=== PATIENT | male | born 1970 | race Caucasian/White ===

== ENCOUNTER 2019-06-01 13:17 | Emergency (ER) | payer SELFPAY ==
[2019-06-01] MEDS ORDERED: ASPIRIN 81 MG TABLET, CHEWABLE PO ONE (14:25)
--- NOTE | 2019-06-01 14:27 | ER Document Report ---
ED Medical Screen (RME) - General Chief Complaint: Chest Pain Stated Complaint: CHEST PAIN Time Seen by Provider: 06/01/19 14:22 Notes: Patient is a 48-year-old male initially found sleeping in a wheelchair. Is arousable with very loud verbal stimuli. When you do not speak to patient he falls asleep sitting in wheelchair in triage room as staff is attempting to obtain in HPI. Patient voices "I am just really tired." Patient states he has had intermittent chest pain for the last couple of months. States last night it awoke him from sleep. Patient's denying any shortness of breath, any medical problems or daily medications. Patient states "I never go to the doctor." LUNGS: Clear to auscultation bilaterally, no wheezes, rales, or rhonchi. No respiratory distress. HEART: Regular rate and rhythm. No murmur I have greeted and performed a rapid initial assessment of this patient. A comprehensive ED assessment and evaluation of the patient, analysis of test results and completion of the medical decision making process will be conducted by additional ED providers. I have specifically instructed the patient or family members with the patient to immediately return to any nursing staff should anything change in the patient's condition or with their chief complaint. This medical record was dictated with voice recognizing software. There may be grammatical, syntax errors that are unintended. TRAVEL OUTSIDE OF THE [place] IN LAST 30 DAYS: No - Related Data Allergies/Adverse Reactions: No Known Allergies Allergy (Verified 06/01/19 13:19) Physical Exam - Vital signs Vitals: Temp Pulse Resp BP Pulse Ox 98.2 F 71 20 99/58 L 94 06/01/19 13:34 06/01/19 13:34 06/01/19 13:34 06/01/19 13:34 06/01/19 13:34 Course - Vital Signs Vital signs: Temp Pulse Resp BP Pulse Ox 98.2 F 71 20 99/58 L 94 06/01/19 13:34 06/01/19 13:34 06/01/19 13:34 06/01/19 13:34 06/01/19 13:34
--- NOTE | 2019-06-01 14:52 | RADIOLOGY REPORT (SQ) ---
EXAM DESCRIPTION: CHEST SINGLE VIEW COMPLETED DATE/TIME: 06/01/2019 2:44 pm REASON FOR STUDY: CP COMPARISON: None. NUMBER OF VIEWS: One view. TECHNIQUE: Single frontal radiographic image of the chest acquired. LIMITATIONS: None. FINDINGS: LUNGS AND PLEURA: Stable appearance. MEDIASTINUM AND HILAR STRUCTURES: Stable heart size and mediastinal structures. HEART AND VASCULAR STRUCTURES: Stable appearance. SUPPORT DEVICES: Appropriate location without change. BONES: No acute findings. OTHER: No other significant finding. IMPRESSION: STABLE APPEARANCE OF THE CHEST. SUPPORT DEVICES UNCHANGED. TECHNICAL DOCUMENTATION: JOB ID: [id number] [employer]- All Rights Reserved Reading location - IP/workstation name: [email or web address]
[2019-06-01 15:57] LABS: ABSOLUTE BASOPHILS # (AUTO) 0.1 10^3/uL (0.0-0.2); ABSOLUTE EOSINOPHILS # (AUTO) 0.5 10^3/uL (0.0-0.6); ABSOLUTE LYMPHOCYTES (AUTO) 3.1 10^3/uL (0.5-4.7); BASOPHILS % (AUTO) 0.8 % (0-2); HEMOGLOBIN 17.3 g/dL (13.5-17.0); TOTAL CELLS COUNTED % (AUTO) 100 %
[2019-06-01 16:03] LABS: ABSOLUTE MONOCYTES (AUTO) 0.9 10^3/uL (0.1-1.4); ABSOLUTE NEUT (AUTO) 3.8 10^3/uL (1.7-8.2); EOSINOPHILS % (AUTO) 5.7 % (0-6); HEMATOCRIT 49.2 % (37.9-51.0); LYMPHOCYTES % (AUTO) 37.6 % (13-45); MEAN CORPUSCULAR HEMOGLOBIN 33.7 pg (27.0-33.4); MEAN CORPUSCULAR HGB CONC 35.3 g/dL (32.0-36.0); MEAN CORPUSCULAR VOLUME 96 fl (80-97); MONOCYTES % (AUTO) 10.3 % (3-13); PLATELET COUNT 245 10^3/uL (150-450); RED BLOOD COUNT 5.15 10^6/uL (4.35-5.55); SEGMENTED NEUTROPHILS % (AUTO) 45.6 % (42-78); WHITE BLOOD COUNT 8.3 10^3/uL (4.0-10.5)
[2019-06-01 16:07] LABS: INTERNATIONAL RATION (INR) 1.05; PROTHROMBIN TIME 13.7 SEC (11.4-15.4)
[2019-06-01 16:14] LABS: ALANINE AMINOTRANSFERASE 93 U/L (21-72); ALBUMIN 4.6 g/dL (3.5-5.0); ALCOHOL 207 mg/dL (NONE DETECTED); ALKALINE PHOSPHATASE 126 U/L (38-126); ANION GAP 15 (5-19); ASPARTATE AMINO TRANSFERASE 139 U/L (17-59); BILIRUBIN,DIRECT 0.7 mg/dL (0.0-0.4); BILIRUBIN,TOTAL 0.9 mg/dL (0.2-1.3); BLOOD UREA NITROGEN 4 mg/dL (7-20); CALCIUM 9.1 mg/dL (8.4-10.2); CARBON DIOXIDE 23 mmol/L (22-30); CHLORIDE 102 mmol/L (98-107); CREATINE KINASE 204 U/L (55-170); GLUCOSE 99 mg/dL (75-110); POTASSIUM 3.5 mmol/L (3.6-5.0)
[2019-06-01 16:25] LABS: CREATINE KINASE MB 0.54 ng/mL (<4.55)
[2019-06-01 16:26] LABS: TROPONIN I < 0.012 ng/mL
--- NOTE | 2019-06-01 16:28 | ER Document Report ---
ED General - General Chief Complaint: Chest Pain Stated Complaint: CHEST PAIN Time Seen by Provider: 06/01/19 14:22 TRAVEL OUTSIDE OF THE [place] IN LAST 30 DAYS: No - HPI Notes: Patient is a 48-year-old alcoholic male who presents to the emergency department complaining of left-sided sternal chest pain that has been present/intermittent for the past 2 months. Patient states the pain is worse when he moves his arm pushes in the area. Patient states that the pain is sharp and has been present since yesterday. Patient states that he does have some upper abdominal pain that does not radiate. Patient states that he has had a decreased p.o. intake. He is urinating normally. Patient states that he has had some diarrhea recently which is not uncommon for him. Patient does report nausea and vomiting, but states that he has this all the time. Denies drug allergies. Pt has had a hernia repair surgery. He does not take any medicines daily. Denies IV drug abuse. Denies any headache, fever, head injury, neck pain, changes in vision/speech/mentation/hearing, URI, sore throat, palpitations, syncope, cough, shortness of breath, wheeze, dyspnea, urinary retention, dysuria, hematuria, loss of control of bowel or bladder, numbness/tingling, saddle anesthesia, muscle paralysis/weakness, or rash. - Related Data Allergies/Adverse Reactions: No Known Allergies Allergy (Verified 06/01/19 13:19) Past Medical History - Social History Smoking Status: Current Every Day Smoker Chew tobacco use (# tins/day): No Frequency of alcohol use: Heavy Drug Abuse: None Family History: Reviewed & Not Pertinent Patient has suicidal ideation: No Patient has homicidal ideation: No Renal/ Medical History: Denies: Hx Peritoneal Dialysis Review of Systems - Review of Systems -: Yes All other systems reviewed and negative Physical Exam - Vital signs Vitals: Temp Pulse Resp BP Pulse Ox 98.2 F 71 20 99/58 L 94 06/01/19 13:34 06/01/19 13:34 06/01/19 13:34 06/01/19 13:34 06/01/19 13:34 - Notes Notes: PHYSICAL EXAMINATION: GENERAL: Well-appearing, well-nourished and in no acute distress. + smell of etoh. A&Ox4. Answers questions appropriately. HEAD: Atraumatic, normocephalic. EYES: Pupils equal round and reactive to light, extraocular movements intact, sclera anicteric, conjunctiva are normal. ENT: Nares patent and without discharge. oropharynx clear without exudates. No tonsilar hypertrophy or erythema. Moist mucous membranes. NECK: Normal range of motion, supple without lymphadenopathy Chest: + reproducible tenderness to palp of the left chest wall and with ROM of the LUE. LUNGS: Breath sounds clear to auscultation bilaterally and equal. No wheezes rales or rhonchi. HEART: Regular rate and rhythm without murmurs, rubs, gallops. ABDOMEN: Soft, nondistended abdomen. No guarding, no rebound. Normal bowel sounds present. No CVA tenderness bilaterally. + tenderness to epigastrum. No lower abd tenderness. Musculoskeletal: FROM to passive/active. Strength 5+/5. Extremities: No cyanosis, clubbing, or edema b/l. Peripheral pulses 2+. Capillary refill less than 3 seconds. Caleb neg b/l. no LE asymmetry. NEUROLOGICAL: Cranial nerves grossly intact. Normal speech (no slurring currently), normal gait. Normal sensory, motor exams PSYCH: Normal mood, normal affect. SKIN: Warm, Dry, normal turgor, no rashes or lesions noted. Course - Re-evaluation Re-evalutation: 06/01/19 19:10 Patient is an afebrile, well-hydrated 48-year-old male who presents to the ED with chest wall pain and epigastric abdominal pain, suspect gastritis. Vitals are acceptable without any significant tachycardia, tachypnea, or hypoxia. PE is otherwise unremarkable aside from the reproducible chest wall tenderness and epigastric tenderness. GI cocktail improved epigastric pain. Patient is nontoxic-appearing and is tolerating p.o. without any difficulties. CBC, CMP, EKG/cardiac enzymes 2, chest x-ray are all unremarkable for any acute pathology. RUQ US unremarkable. Patient has a heart score of <=3, Wells score of 0, and is PERC negative. Patient does not have any dyspnea or shortness of breath. Patient's presentation and symptomatology creates low suspicion for ACS, PE, pneumothorax, pericarditis, dissection, respiratory compromise, severe dehydration, sepsis, meningitis, or other systemic emergent condition at this time. Patient is aware that his condition can change from initial presentation and he needs to monitor symptoms closely and seek medical attention for any acute changes. Pt is feeling better and would like to go home. He is currently of sound mind and is A&Ox4. He is not slurring his speech and is able to ambulate w/o any instability. Counseled on etoh. Recommend conservative measures for symptoms. Recheck with your PCM in 2-3 days. Consider consult with GI. Return to the ED with any worsening/concerning symptoms otherwise as reviewed in discharge. Patient is in agreement. - Vital Signs Vital signs: Temp Pulse Resp BP Pulse Ox 98.5 F 71 12 114/85 94 06/01/19 19:08 06/01/19 13:34 06/01/19 16:02 06/01/19 16:02 06/01/19 13:34 - Laboratory Result Diagrams: 06/01/19 15:44 06/01/19 15:44 Laboratory results interpreted by me: 06/01/19 06/01/19 15:44 15:44 Hgb 17.3 H MCH 33.7 H Potassium 3.5 L BUN 4 L Direct Bilirubin 0.7 H AST 139 H ALT 93 H Creatine Kinase 204 H Discharge - Discharge Clinical Impression: Epigastric abdominal pain, Chest wall pain Condition: Stable Disposition: HOME, SELF-CARE Instructions: Abdominal Pain ([facility]), Chest Wall Pain ([facility]) Additional Instructions: Maintain adequate fluid and food intake Harmon diet (B.R.A.T.) Bananas, rice, apples, toast, etc Monitor for any worsening symptoms Monitor blood pressure and keep log Consider alcohol detox Make sure you are staying hydrated enough to urinate and have normal BM's Recheck with your PCM in 2-3 days Consider consult with Gastroenterology for ongoing/worsening symptoms Return to the ED with any worsening symptoms and/or development of fever, he adache, chest pain, palpitations, syncope, shortness of breath, trouble breathing, abdominal pain, n/v/d, blood in stool/urine, weakness, or other worsening symptoms that are concerning to you. Prescriptions: Omeprazole 20 mg PO DAILY #30 tablet. Sucralfate [Carafate] 1 gm PO BID #100 ml Forms: Elevated Blood Pressure, Smoking Cessation Education Referrals: MARY GONZALEZ MD [ACTIVE STAFF] - Follow up as needed [facility] [Provider Group] - Follow up as needed
[2019-06-01] MEDS: NORMAL SALINE 1000 ML 1,000 ML IV PRN ×2 (17:15→18:14)
--- NOTE | 2019-06-01 17:22 | RADIOLOGY REPORT (SQ) ---
EXAM DESCRIPTION: U/S ABDOMEN LIMITED W/O DOP COMPLETED DATE/TIME: 06/01/2019 5:06 pm REASON FOR STUDY: RUQ/epigastric pain, etoh abuse COMPARISON: None. TECHNIQUE: Dynamic and static grayscale images acquired of the abdomen and recorded on PACS. Josefao tessa selected color Doppler and spectral images recorded. LIMITATIONS: None. FINDINGS: PANCREAS: No masses. Visualized pancreatic duct normal caliber. LIVER: 20.7 cm. Increased echogenicity indicating fatty infiltration. No focal masses. LIVER VASCULATURE: Normal directional flow of the main portal vein and hepatic veins. GALLBLADDER: No stones. Normal wall thickness. No pericholecystic fluid. ULTRASOUND-DETECTED JUAREZ'S SIGN: Negative. INTRAHEPATIC DUCTS AND COMMON DUCT: CBD and intrahepatic ducts normal caliber. No filling defects. INFERIOR VENA CAVA: Normal flow. AORTA: No aneurysm. RIGHT KIDNEY: Normal size. Normal echogenicity. No solid or suspicious masses. No hydronephrosis. No calcifications. PERITONEAL AND RIGHT PLEURAL SPACE: No ascites or effusions. OTHER: No other significant findings. IMPRESSION: Fatty enlarged liver. TECHNICAL DOCUMENTATION: JOB ID: [id number] [employer]- All Rights Reserved Reading location - IP/workstation name: [email or web address]
[2019-06-01] MEDS ORDERED: METOCLOPRAMIDE HCL ORAL SOLN 10 MG/10 ML UDCUP PO ONE (18:41)
[2019-06-01] MEDS ORDERED: MAG HYDROX/AL HYDROX/SIMETH SUSP 30 ML UDCUP PO ONE (18:41)
[2019-06-01] MEDS ORDERED: LIDOCAINE 2% VISCOUS SOLN 20 ML UDCUP PO ONE (18:41)
[2019-06-01 19:30] VITALS: BP 136/92
--- NOTE | 2019-06-01 23:08 | EKG REPORT ---
SEVERITY:- NORMAL ECG - SINUS RHYTHM : Confirmed by: Goran Mojica 01-Jun-2019 23:07:31
== END 2019-06-01 19:42 | disposition home or self-care (01) ==
LOC: ER 13:17
DX: R10.13 Epigastric pain (principal); R07.89 Other chest pain; R10.10 Upper abdominal pain, unspecified; R63.0 Anorexia; F17.200 Nicotine dependence, unspecified, uncomplicated
CPT/HCPCS: 93005; 99284; 96360; 96361; 36415; 82553; 80307; 82550; 83690; 85025; 85610; 80053; 84484; 71045; 76705; 93010; J3490; J7030